=== PATIENT | female | born 2000 | race American Indian/Alaskan Native ===

== ENCOUNTER 2022-10-31 15:48 | Emergency (ER) | payer OTHER, SELFPAY ==
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
[2022-10-31 15:55] VITALS: BP 143/90; PULSE 117; RESP 18; TEMP 36.9; O2SAT 98; BMI 28.5
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
[2022-10-31 21:14] VITALS: BP 140/81; PULSE 97; RESP 16; TEMP 36.9
[2022-10-31] MEDS: Acetaminophen 325 MG TABLET 975 MG PO (21:38)
== END 2022-10-31 23:34 | disposition home or self-care (01) ==
PROVIDERS: Emergency Provider Emergency Medicine
DX: S00.11XA Contusion of right eyelid and periocular area, initial encounter (principal); S30.0XXA Contusion of lower back and pelvis, initial encounter; S00.81XA Abrasion of other part of head, initial encounter; Y04.2XXA Assault by strike against or bumped into by another person, initial encounter; H11.31 Conjunctival hemorrhage, right eye; M54.2 Cervicalgia; M54.9 Dorsalgia, unspecified; Y93.89 Activity, other specified; Y92.810 Car as the place of occurrence of the external cause; Y99.9 Unspecified external cause status
CPT/HCPCS: 70450; 70486; 72125; 99284

== ENCOUNTER 2023-01-04 18:19 | Inpatient (IN) | payer MEDICAID, SELFPAY ==
[2023-01-04 18:30] VITALS: BP 138/88; PULSE 84; RESP 18; TEMP 36.6; O2SAT 98
[2023-01-04] MEDS: Thiamine HCL 100 MG TABLET PO (19:51)
[2023-01-04] MEDS: traZODone HCL 50 MG TABLET PO (19:51)
[2023-01-04 20:55] VITALS: BMI 29.2
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
[2023-01-05] MEDS: Thiamine HCL 100 MG TABLET PO (08:23)
[2023-01-05 08:24] LABS: Estimated Average Glucose 91 mg/dL; Hemoglobin A1c % 4.8 % (<6.0)
[2023-01-05] MEDS: hydrOXYzine HCL 25 MG TABLET PO ×2 (08:28→22:33)
[2023-01-05 08:39] LABS: Alanine Aminotransferase 25 U/L (0-31); Albumin Level 4.8 g/dL (3.5-5.0); Alkaline Phosphatase 92 U/L (39-117); Anion Gap 17 (12-20); Aspartate Amino Transferase 46 U/L (5-31); Bilirubin Total 1.4 mg/dL (0.0-1.0); Blood Urea Nitrogen 12 mg/dL (9-16); Calcium 10.3 mg/dL (8.4-10.2); Carbon Dioxide 21 mmol/L (22-29); Chloride 105 mmol/L (96-108); Cholesterol 148 mg/dL (<200); Creatinine Clr Calc Pharmacy 111.5; Estimated Glomerular Filt Rate > 60; Glucose Fasting 132 mg/dL (60-99); HDL Cholesterol 55 mg/dL (>40); LDL Cholesterol Calculated 65 mg/dL (<100); Potassium 3.6 mmol/L (3.3-5.1); Sodium 139 mmol/L (135-145); Total Protein 8.3 g/dL (6.5-8.0); Triglycerides 142 mg/dL (<150)
[2023-01-05 08:54] LABS: Thyroid Stimulating Hormone 0.74 uIU/mL (0.32-4.0)
[2023-01-05 09:00] LABS: Vitamin B12 519 pg/mL (200-900)
[2023-01-05 10:13] VITALS: BP 141/83; PULSE 86; RESP 16; TEMP 36.6; O2SAT 98
[2023-01-05] MEDS: Nicotine 21 MG PATCH.TD24 TRANSDERMA (10:22)
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
[2023-01-05 17:03] VITALS: BP 137/79; PULSE 80; RESP 16; TEMP 36.1; O2SAT 98
[2023-01-05] MEDS: traZODone HCL 50 MG TABLET PO ×2 (21:12→22:33)
[2023-01-06 06:00] VITALS: BP 133/86; PULSE 87; RESP 16; TEMP 36.1; O2SAT 99
[2023-01-06] MEDS: Acetaminophen 325 MG TABLET 650 MG PO (08:28)
[2023-01-06] MEDS: Naltrexone HCl 50 MG TABLET PO (08:30)
[2023-01-06] MEDS: Escitalopram Oxalate 5 MG TABLET PO (08:30)
[2023-01-06] MEDS: Nicotine 21 MG PATCH.TD24 TRANSDERMA (08:30)
[2023-01-06] MEDS: Thiamine HCL 100 MG TABLET PO (08:30)
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
[2023-01-06 18:00] VITALS: BP 137/89; PULSE 81; RESP 18; TEMP 36.1; O2SAT 99
[2023-01-06] MEDS: hydrOXYzine HCL 25 MG TABLET PO (18:41)
[2023-01-06] MEDS: traZODone HCL 50 MG TABLET PO ×2 (20:22→21:30)
[2023-01-07 06:00] VITALS: BP 130/87; PULSE 75; RESP 16; TEMP 36.6; O2SAT 99
[2023-01-07] MEDS: Milk of Magnesia 30 ML ORAL.SUSP PO (06:39)
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
[2023-01-07] MEDS: LORazepam 1 MG TABLET PO (08:12)
[2023-01-07] MEDS: Escitalopram Oxalate 5 MG TABLET PO (08:12)
[2023-01-07] MEDS: Acetaminophen 325 MG TABLET 650 MG PO (08:12)
[2023-01-07] MEDS: Thiamine HCL 100 MG TABLET PO (08:12)
[2023-01-07] MEDS: Topiramate 25 MG TABLET PO ×2 (09:57→19:32)
[2023-01-07] MEDS: hydrOXYzine HCL 25 MG TABLET PO (18:14)
[2023-01-07] MEDS: traZODone HCL 50 MG TABLET PO (19:32)
[2023-01-07 19:40] VITALS: BP 136/71; PULSE 77; RESP 16; TEMP 36.6; O2SAT 98
[2023-01-08 08:35] VITALS: BP 124/78; PULSE 81; RESP 18; TEMP 36; O2SAT 100
[2023-01-08] MEDS: Escitalopram Oxalate 5 MG TABLET PO (09:26)
[2023-01-08] MEDS: Topiramate 25 MG TABLET PO (09:26)
[2023-01-08] MEDS: Thiamine HCL 100 MG TABLET PO (09:26)
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
== END 2023-01-08 11:53 | disposition home or self-care (01) | DRG 751 ==
PROVIDERS: Social Worker; Admitting Provider Psychiatry & Neurology Psychiatry; Visit Provider Clinical Nurse Specialist Psychiatric/Mental Health, Adult
DX: F33.9 Major depressive disorder, recurrent, unspecified (principal); R45.851 Suicidal ideations; F17.210 Nicotine dependence, cigarettes, uncomplicated; F10.90 Alcohol use, unspecified, uncomplicated; F12.90 Cannabis use, unspecified, uncomplicated; Z71.6 Tobacco abuse counseling; Z79.899 Other long term (current) drug therapy
CPT/HCPCS: 36415; 80053; 80061; 82607; 83036; 84443

== ENCOUNTER → 2023-01-04 18:19 | Outpatient (BNV) | payer MEDICAID, SELFPAY | PROVIDERS: Admitting Provider Psychiatry & Neurology Psychiatry; Visit Provider Student in an Organized Health Care Education/Training Program | DX: Z00.8 Encounter for other general examination (principal) | CPT/HCPCS: 99222 ==

== ENCOUNTER → 2023-01-04 18:19 | Outpatient (BNV) | payer SELFPAY | PROVIDERS: Admitting Provider Psychiatry & Neurology Psychiatry; Visit Provider Psychiatry & Neurology Psychiatry | DX: F33.2 Major depressive disorder, recurrent severe without psychotic features (principal); F10.90 Alcohol use, unspecified, uncomplicated | CPT/HCPCS: 99231; 99232 ==